=== PATIENT | female | born 1950 | race Caucasian/White ===

== ENCOUNTER 2024-03-20 09:03 | Emergency (ER) | payer OTHER ==
[2024-03-20 10:15] VITALS: TEMP 98.1; BMI 26.5
[2024-03-20 11:11] LABS: BASO % 0.7 % (0-2.0); HEMATOCRIT 39.1 % (32.4-45.2); HEMOGLOBIN 12.7 GM/dL (10.7-15.3); LYMPH % 29.9 % (8-40); MCH 28.3 pg (25.7-33.7); MCHC 32.5 g/dl (32.0-36.0); MEAN CELL VOLUME 87.2 fl (80-96); MEAN PLT VOLUME 8.8 fl (7.5-11.1); MONO % 7.1 % (3.8-10.2); NEUT % 61.3 % (42.8-82.8); PLATELET COUNT 138 10^3/uL (134-434); RBC 4.48 M/mm3 (3.60-5.2); RDW 14.2 % (11.6-15.6)
[2024-03-20 11:33] LABS: POTASSIUM 4.6 mmol/L (3.5-5.1)
[2024-03-20 11:36] LABS: ALBUMIN 3.3 g/dl (3.4-5.0); BLOOD UREA NITROGEN 8.2 mg/dL (7-18); MAGNESIUM 2.2 mg/dL (1.8-2.4)
[2024-03-20] MEDS: LACTATED RINGERS SOLUTION 1000 ML INFUS.BAG IV ONE (11:37)
[2024-03-20 11:39] LABS: CREATININE 0.8 mg/dL (0.55-1.3)
[2024-03-20 11:40] LABS: BILIRUBIN,TOTAL 0.4 mg/dL (0.2-1); TOT PROT 6.4 g/dl (6.4-8.2)
[2024-03-20 12:23] LABS: POTASSIUM 3.7 mmol/L (3.5-5.1)
[2024-03-20 12:24] LABS: CALCIUM 8.7 mg/dL (8.5-10.1)
[2024-03-20 12:25] LABS: BLOOD UREA NITROGEN 7.5 mg/dL (7-18)
[2024-03-20 12:28] LABS: CREATININE 0.7 mg/dL (0.55-1.3)
[2024-03-20 12:46] LABS: MAGNESIUM 2.1 mg/dL (1.8-2.4)
[2024-03-20 19:54] VITALS: BP 151/80; PULSE 67; RESP 20
== END 2024-03-20 19:58 | disposition home or self-care (01) ==
LOC: JER 09:03
DX: R19.7 Diarrhea, unspecified (principal); R11.0 Nausea; R10.819 Abdominal tenderness, unspecified site; Z20.822 Contact with and (suspected) exposure to COVID-19
CPT/HCPCS: 0241U-QW; 36415; 74177-TC; 80048; 80053; 83690; 83735; 85025; 99285-25; Q9967